=== PATIENT | male | born 1950 | race American Indian/Alaskan Native ===

== ENCOUNTER 2021-10-27 09:58 | Emergency (ER) | payer MEDICARE ==
--- NOTE | 2021-10-27 10:18 | Emergency Department Report ---
Blank Doc - Documentation Documentation: 71-year-old male that presents with shortness of breath, chest pains, chest ti ghtness and cough. 1- This is a initial triage assessment/medical screening only. Full assessment and work-up will be completed once the patient is in proper hospital gown, ED bed and in a private room setting. This initial assessment/diagnostic orders/clinical plan/ treatment(s) is/are subject to change based on pt's health status, clinical progression and re-assessment by fellow clinical providers in the ED. Further treatment and workup at subsequent clinical providers discretion. Patient/guardians urged not to elope from ED as their condition may be serious if not clinically assessed and managed. 2-cardiac workup The patient was evaluated in the emergency department for symptoms described in the history of present illness. He/she was evaluated in the context of the global COVID-19 pandemic, which necessitated consideration that the patient might be at risk for infection with the virus that causes COVID-19. Institutional protocols and algorithms that pertain to the evaluation of patients at risk for COVID-19 are in a state of rapid change based on information released by regulatory bodies including the CDC and federal and state organizations. These policies and algorithms were followed during the patient's care in the emergency department. Please note that these policies, procedures and recommendations changed on a rapid basis.
[2021-10-27 10:21] VITALS: BP 126/90
--- NOTE | 2021-10-27 10:43 | XRay Report ---
CHEST 2 VIEWS INDICATION / CLINICAL INFORMATION: Chest Pain. COMPARISON: None available. FINDINGS: SUPPORT DEVICES: None. HEART / MEDIASTINUM: No significant abnormality. LUNGS / PLEURA: No significant pulmonary or pleural abnormality. No pneumothorax. ADDITIONAL FINDINGS: No significant additional findings. IMPRESSION: 1. No acute findings. Signer Name: Fred Torres MD Signed: 10/27/2021 10:39 AM Workstation Name: [id number]
[2021-10-27 11:19] LABS: Basophils % (Auto) 0.7 % (0.0-1.8); Eosinophils # (Auto) 0.1 K/mm3 (0.0-0.4); Eosinophils % (Auto) 2.8 % (0.0-4.3); Hematocrit 33.3 % (35.5-45.6); Hemoglobin 10.5 gm/dl (11.8-15.2); Lymphocytes % (Auto) 22.8 % (13.4-35.0); Mean Corpuscular HGB Conc 32 % (32-34); Mean Corpuscular Volume 79 fl (84-94); Monocytes # (Auto) 0.6 K/mm3 (0.0-0.8); Monocytes % (Auto) 13.9 % (0.0-7.3); Platelet Count 105 K/mm3 (140-440); Red Blood Count 4.21 M/mm3 (3.65-5.03); Red Cell Distribution Width 19.1 % (13.2-15.2)
[2021-10-27 11:25] LABS: INR 0.99 (0.87-1.13)
[2021-10-27 11:26] LABS: Partial Thromboplastin Time 33.4 Sec. (24.2-36.6)
[2021-10-27 12:14] LABS: Albumin 3.9 g/dL (3.9-5); Calcium 7.9 mg/dL (8.4-10.2)
[2021-10-27 12:59] LABS: Chol/HDL Ratio 2.6 %
--- NOTE | 2021-10-28 08:27 | Electrocardiograph Report ---
[facility] Test Date: 2021-10-27 Test Time: 10:22:38 Pat Name: SAIDA FELIX Department: Room: Gender: M Medical Administrator: LYDIA : 1950 Requested By: TRELL HAIR Order Number: [id number] Reading MD: Dung Rodriguez Measurements Intervals Edna Rate: 75 P: 27 NH: 204 QRS: -41 QRSD: 98 T: 35 QT: 393 QTc: 439 Interpretive Statements Sinus rhythm Left anterior fascicular block Low voltage, precordial leads poor r wave progression No previous ECG available for comparison Electronically Signed On 10-28-2021 8:26:57 EDT by Dung Rodriguez
== END 2021-10-28 13:03 | disposition left against medical advice (07) ==
LOC: ED 09:58
DX: R06.02 Shortness of breath (principal); Z53.21 Procedure and treatment not carried out due to patient leaving prior to being seen by health care provider
CPT/HCPCS: 36415; 71046; 80053; 80061; 84484; 85025; 85610; 85730; 93005